=== PATIENT | female | born 1975 | race Caucasian/White ===

== ENCOUNTER 2016-09-26 10:37 | Emergency (ER) | payer OTHER ==
[2016-09-26 10:41] VITALS: BP 118/61; PULSE 99; TEMP 98.2; BMI 20.5
--- NOTE | 2016-09-26 11:39 | PDOC ---
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 no vomiting or nausea. no medical history or allergies. 09/26/16 12:22 09/26/16 12:22 Severity: mild Past History - Past Medical History Allergies/Adverse Reactions: Allergies Allergy/AdvReac Type Severity Reaction Status Date / Time No Known Allergies Allergy Verified 09/26/16 10:42 Home Medications: Ambulatory Orders Penicillin V Potassium [Pen Vee K -] 500 mg PO BID #20 tablet 09/26/16 - Immunization History Immunization Up to Date: Yes - Psycho/Social/Smoking Cessation Hx Anxiety: No Suicidal Ideation: No Smoking History: Never smoked Information on smoking cessation initiated: No Hx Alcohol Use: No Substance Use Type: None Review of Systems - Review of Systems Able to Perform ROS?: Yes Is the patient limited Maur[place]ian proficient: No Constitutional: No: Symptoms Reported HEENTM: Yes: Symptoms Reported, Throat Pain Respiratory: No: Symptoms reported Cardiac (ROS): No: Symptoms Reported ABD/GI: No: Symptoms Reported : No: Symptoms Reported Musculoskeletal: No: Symptoms Reported *Physical Exam - Vital Signs Last Vital Signs Temp Pulse Resp BP Pulse Ox 98.2 F 99 H 18 118/61 99 09/26/16 10:39 09/26/16 10:39 09/26/16 10:39 09/26/16 10:39 09/26/16 10:39 - Physical Exam General Appearance: Yes: Nourished, Appropriately Dressed HEENT: positive: EOMI, YURIY Neck: positive: Supple Respiratory/Chest: positive: Lungs Clear, Normal Breath Sounds. negative: Chest Tender Cardiovascular: positive: Regular Rhythm, Regular Rate Musculoskeletal: positive: Normal Inspection Extremity: positive: Normal Capillary Refill, Normal Inspection, Normal Range of Motion Integumentary: positive: Normal Color, Dry, Warm Neurologic: positive: Normal Response, Motor Strength 5/5 Medical Decision Making - Medical Decision Making 09/26/16 11:37 cc: sore throat, no diff swallowing or speaking pt able to eat and drink no fever will check rapid strep 09/26/16 12:24 positive strep will treat with 10 days Pen V K pt to return to work when pt has taken 24hrs of antibiotics *DC/Admit/Observation/Transfer Diagnosis at time of Disposition: Strep pharyngitis - Discharge Dispostion Disposition: HOME Condition at time of disposition: Good - Prescriptions Prescriptions: Penicillin V Potassium [Pen Vee K -] 500 mg PO BID #20 tablet - Referrals Referrals: Randa Ruiz [Primary Care Provider] - - Patient Instructions Additional Instructions: gargle with warm salt water 4-5 times a day take the penciliin as directed for 10 days finish all of it. take motrin 600mg every 6hrs for pain or fever follow with your doctor if any worsening symptoms you may return to work after 24hrs or antibiotics - Post Discharge Activity Work/School Note: Back to Work
== END 2016-09-26 12:21 | disposition home or self-care (01) ==
LOC: JERFT 10:37
DX: J02.0 Streptococcal pharyngitis (principal)
CPT/HCPCS: 87070; 87077; 87430; 99281-25